=== PATIENT | female | born 1955 | race Caucasian/White ===

== ENCOUNTER → 2016-12-07 | Outpatient (CLI) | payer BC ==
[~2016-12-07] MED LIST: ATOR10TA82 PO; DPR600 PO; DTRSR4 PO; DVN80 PO; GLC500 PO; LEVO100T84 PO; MOME50SP5; MULT-506 PO; OXYC1TAB3 PO; PROP20TA67 PO
== END | disposition home or self-care (01) ==
LOC: C.RDSM 15:26
PROVIDERS: ATTEND Orthopaedic Surgery Sports Medicine
DX: D16.21 Benign neoplasm of long bones of right lower limb (principal)